=== PATIENT | male | born 1995 | race African-American/Black ===

== ENCOUNTER 2021-06-09 11:38 | Emergency (ER) | payer OTHER ==
[~2021-06-09] VITALS: Ht 177.8 cm; Wt 93.7 kg
[2021-06-09] MEDS ORDERED: KETOROLAC 30 MG/ML VIAL. IVP ONE (12:30)
[2021-06-09] MEDS ORDERED: diphenhydrAMINE 50 MG/ML VIAL IVP ONE (12:30)
[2021-06-09] MEDS ORDERED: PROCHLORPERAZINE 10 MG/2 ML VIAL. IV ONE (12:30)
[2021-06-09] MEDS ORDERED: IV NORMAL SALINE 1,000ML 1,000 ML IV ONE (12:30)
--- NOTE | 2021-06-09 12:36 | PHYS DOC ---
Past History Past Surgical History: No Surgical History Alcohol Use: Rarely General Adult EDM: Chief Complaint: HEADACHE HPI: HPI: Patient is a 25-year-old male who presents to the emergency department for a headache for 2 weeks. Patient reports that his slowly gotten worse over the last 2 weeks. He rates it 10 out of 10. He is also reporting some photophobia. He denies phonophobia, nausea, vomiting, vision changes or blurred vision, thunderclap headache, fever, neck stiffness. He states that he does not have a history of headaches. He admits that prior to his head hurting he was playing college football he is unsure if he hit his head or injured his head in any way at that time. Review of Systems: Review of Systems: 14 body systems of the review of systems have been reviewed. See HPI for pertinent positive and negative responses, otherwise all other systems are negative, nonpertinent or noncontributory Current Medications: Current Meds: Current Medications Medications (Trade) Dose Ordered Sig/Leticia Start Time Stop Time Status Last Admin Dose Admin Diphenhydramine HCl (Benadryl) 25 mg 1X ONCE 06/09/21 12:30 06/09/21 12:31 Ketorolac Tromethamine (Toradol 30mg Vial) 30 mg 1X ONCE 06/09/21 12:30 06/09/21 12:31 Prochlorperazine Edisylate (Compazine) 10 mg 1X ONCE 06/09/21 12:30 06/09/21 12:31 Sodium Chloride 1,000 ml @ 1,000 mls/hr 1X ONCE 06/09/21 12:30 06/09/21 13:29 Allergies: Allergies: Allergies Coded Allergies Type Severity Reaction Last Updated Verified No Known Drug Allergies 06/09/21 No Physical Exam: PE: Constitutional: Well developed, well nourished, no acute distress, non-toxic appearance. [] HENT: Normocephalic, atraumatic, no palpable skull fracture, no ecchymosis or wounds noted to head, bilateral external ears normal, oropharynx moist, no oral exudates, nose normal. [] Eyes: PERRLA, 5 mm pupils bilaterally, EOMI, conjunctiva normal, no discharge. [] Neck: Normal range of motion, no bony spinal tenderness, no step-offs or deformities, supple, no stridor. [] Cardiovascular:Heart rate regular rhythm, no murmur [] Lungs & Thorax: Bilateral breath sounds clear to auscultation [] Abdomen: Bowel sounds normal, soft, no tenderness, no masses, no pulsatile masses. [] Skin: Warm, dry, no erythema, no rash. [] Back: No bony spinal tenderness, no CVA tenderness, normal range of motion. [] Extremities: No tenderness, no cyanosis, no clubbing, ROM intact, no edema. [] Neurologic: Alert and oriented X 3, normal motor function, normal sensory function, no focal deficits noted. [] Psychologic: Affect normal, judgement normal, mood normal. [] Current Patient Data: Vital Signs: Vital Signs Date Time Temp Pulse Resp B/P (MAP) Pulse Ox O2 Delivery O2 Flow Rate FiO2 06/09/21 12:05 98.4 74 16 158/89 (112) 98 Room Air EKG: EKG: [] Radiology/Procedures: Radiology/Procedures: []PROCEDURE: CT HEAD AND CERVICAL SPINE WO EXAM: CT head and cervical spine without contrast INDICATION: Severe headache, possible injury COMPARISON: None TECHNIQUE: Axial CT imaging through the head and cervical spine without intravenous contrast. Sagittal and coronal reformats were obtained. One or more of the following individualized dose reduction techniques were utilized for this examination: 1. Automated exposure control 2. Adjustment of the mA and/or kV according to patient size 3. Use of iterative reconstruction technique. FINDINGS: CT head: The ventricles and sulci are normal. Gutierrez-white matter differentiation is maintained. There is no intracranial hemorrhage, acute infarct, or mass lesion. Basal cisterns are clear. The skull and scalp are intact. There is moderate mucosal thickening in the ethmoid air cells and sphenoid sinuses. Globes and orbits are intact. CT cervical spine: Mild motion artifact. There is no acute fracture. Alignment is normal. There is mild reversal lordosis, which may be due to positioning. Disc spaces and facet joints are maintained. No facet joint or disc space widening. Prevertebral soft tissues is normal. The lung apices are clear. IMPRESSION: 1. No acute intracranial abnormality. 2. No acute osseous abnormality of the cervical spine. 3. Paranasal sinus disease. Electronically signed by: Bettie Khan MD (06/09/2021 12:47 PM) [id number] DICTATED AND SIGNED BY: BETTIE KHAN MD DATE: 06/09/21 1239 CC: ART CHAU APRN; PCP,[facility]IS[facility] ~MTH0 0 Heart Score: C/O Chest Pain: N/A Risk Factors: Risk Factors: DM, Current or recent (<one month) smoker, HTN, HLP, family history of CAD, obesity. Risk Scores: Score 0 - 3: 2.5% MACE over next 6 weeks - Discharge Home Score 4 - 6: 20.3% MACE over next 6 weeks - Admit for Clinical Observation Score 7 - 10: 72.7% MACE over next 6 weeks - Early Invasive Strategies Course & Med Decision Making: Course & Med Decision Making Pertinent Labs and Imaging studies reviewed. (See chart for details) [] Patient is a 25-year-old male who presents to the emergency department for a generalized headache. Headache is associated with photophobia. Patient has no meningeal signs, no thunderclap headache. Patient reports that pain in his head started after he was playing a college football game. He is unsure if he injured himself in any way during the football game. He denies any neck or back pain. He denies hitting his head or LOC losing consciousness while playing football. CT imaging was performed of his head and neck that showed no acute findings. Patient was treated with migraine cocktail. He reports improvement in his symptoms. Patient advised to continue to take ibuprofen or naproxen for his head pain and follow-up with his primary care provider. I discussed with patient all findings and diagnostic testing as well as the need to follow-up with PCP for further evaluation and treatment or return to the ER if any new or worsening symptoms. Strict return precautions were also discussed at length. Patient voiced understanding and agreement with the plan. Patient is hemodynamically stable at the time of disposition. Dragon Disclaimer: Dragon Disclaimer: This electronic medical record was generated, in whole or in part, using a voice recognition dictation system. Departure Departure: Impression: Primary Impression: Migraine headache Qualified Codes: G43.901 - Migraine, unspecified, not intractable, with status migrainosus Disposition: HOME / SELF CARE / HOMELESS Condition: GOOD Referrals: PCP,NO (PCP) Patient Instructions: Migraine Headache Additional Instructions: You were seen in the emergency department for a headache which is most likely a migraine. You were given a migraine cocktail which includes Toradol, Compazine, and Benadryl which resolved the headache. Fluids were also given to help with dehydration which is commonly a cause of headache. Try to hydrate at home with water and other fluids and eat normal diet, you can take Tylenol and/or ibuprofen for your pain. Due to your headache starting after playing a football game, CT was performed of your head and neck that showed no acute findings. Please return to the emergency department if you have any vomiting, fever, increased pain that is refractory to treatments at home, vision changes, changes in behavior or mental status, or any focal neurological symptoms including weakness or numbness in the limbs. It is important to follow-up with your doctor tomorrow regarding your ER visit for reexamination. EMERGENCY DEPARTMENT GENERAL DISCHARGE INSTRUCTIONS Thank you for coming to [facility] (ED) today and trusting us with you care. We trust that you had a positivie experience in our Emergency Department. If you wish to speak to the department management, you may call the director at . YOUR FOLLOW UP INSTRUCTIONS ARE FOLLOWS: 1. Do you have a private Doctor? If you do not have a private doctor, please ask for a resource list of physicians or clinics that may be able to assist you with follow up care. 2. The Emergency Physician has interpreted your x-rays. The X-Ray specialist will also review them. If there is a change in the findings, you will be notified in 48 hours when at all possible. 3. A lab test or culture has been done, your results will be reviewed and you will be notified if you need a change in treatment. ADDITIONAL INSTRUCTIONS AND INFORMATION: 1. Your care today has been supervised by a physician who is specially trained in emergency care. Many problems require more than one evaluation for a complete diagnosis and treatment. We recommend that you schedule your follow up appointment as recommended to ensure complete treatment of you illness or injury. If you are unable to obtain follow up care and continue to have a problem, or if your condition worsens, we recommend that you return to the ED. 2. We are not able to safely determine your condition over the phone nor are we able to give sound medical advice over the phone. For these safety reasons, if you call for medical advice we will ask you to come to the ED for further evaluation. 3. If you have any questions regarding these discharge instructions please call the ED at [phone]. SAFETY INFORMATION: In the interest of safety, wellness, and injury prevention; we encourage you to wear your sealbelt, if you smoke; quite smoking, and we encourage family to use a protective helmet for bicycling and other sporting events that present an increased risk for head injury. IF YOUR SYMPTOMS WORSEN OR NEW SYMPTOMS DEVELOP, OR YOU HAVE CONCERNS ABOUT YOUR CONDITION; OR IF YOUR CONDITION WORSENS WHILE YOU ARE WAITING FOR YOUR FOLLOW UP APPOINTMENT; EITHER CONTACT YOUR PRIMARY CARE DOCTOR, THE PHYSICIAN WHOSE NAME AND NUMBER YOU WERE GIVEN, OR RETURN TO THE ED IMMEDIATELY. ART CHAU APRN Jun 09, 2021 12:36
--- NOTE | 2021-06-09 12:49 | RAD ---
EXAM: CT head and cervical spine without contrast INDICATION: Severe headache, possible injury COMPARISON: None TECHNIQUE: Axial CT imaging through the head and cervical spine without intravenous contrast. Sagitta l and coronal reformats were obtained. One or more of the following individualized dose reduction techniques were utilized for this examinat ion: 1. Automated exposure control 2. Adjustment of the mA and/or kV according to patient size 3. Use of iterative reconstruction technique. FINDINGS: CT head: The ventricles and sulci are normal. Gutierrez-white matter differentiation is maintained. There is no in tracranial hemorrhage, acute infarct, or mass lesion. Basal cisterns are clear. The skull and scalp a re intact. There is moderate mucosal thickening in the ethmoid air cells and sphenoid sinuses. Globes and orbits are intact. CT cervical spine: Mild motion artifact. There is no acute fracture. Alignment is normal. There is mild reversal lordosi s, which may be due to positioning. Disc spaces and facet joints are maintained. No facet joint or di sc space widening. Prevertebral soft tissues is normal. The lung apices are clear. IMPRESSION: 1. No acute intracranial abnormality. 2. No acute osseous abnormality of the cervical spine. 3. Paranasal sinus disease. Electronically signed by: Bettie Khan MD (06/09/2021 12:47 PM) [id number]
[2021-06-09 13:48] VITALS: BP 130/72
== END 2021-06-09 13:50 | disposition home or self-care (01) ==
LOC: ER 11:38
DX: G43.901 Migraine, unspecified, not intractable, with status migrainosus (principal)
CPT/HCPCS: 70450; 72125; 96361; 96374; 96375; 99284; J0780; J1200; J1885; J7030